=== PATIENT | male | born 1975 | race African-American/Black ===

== ENCOUNTER 2021-08-27 10:08 | Observation (INO) | payer OTHER ==
[2021-08-27 11:21] LABS: #Eosinphils 0.1 10x3/uL (0.0-0.5); #Monocytes 0.4 10x3/uL (0.0-1.1); #Neutrophils 3.3 10x3/uL (1.5-8.4); %Basophils 0.4 % (0.0-2.0); %Eosinophils 2.5 % (0.0-6.0); %Lymphocytes 32.3 % (18.0-47.0); %Monocytes 6.9 % (0.0-10.0); %Neutrophils 57.9 % (40.0-75.0); Hemoglobin 14.3 g/dL (13.5-17.5); Mean Corpuscular HGB CONC 32.2 g/dL (32.0-36.0); Mean Corpuscular Hemoglobin 27.9 pg (27.0-33.0); Mean Corpuscular Volume 86.5 fl (81.2-95.1); Mean Platelet Volume 9.5 fl (7.4-10.4); Platelet Count 270 10x3/uL (150-450); RBC Distribution Width 14.2 % (11.5-14.5); Red Blood Cell (RBC) Count 5.13 10x6/uL (4.32-5.72); White Blood Cell (WBC) Count 5.7 10x3/uL (3.5-10.5)
[2021-08-27 11:25] LABS: PTT 27.9 sec (22.0-33.0)
[2021-08-27 11:42] LABS: ALT (SGPT) 51 U/L (8-55); AST (SGOT) 32 U/L (5-34); Albumin 4.6 g/dL (3.5-5.0); Alkaline Phosphatase 80 U/L (40-110); Anion Gap 15 mmol/L (10-20); BUN (Urea Nitrogen) 9 mg/dL (8.9-20.6); Bilirubin, Total 0.5 mg/dL (0.2-1.2); Calc. Creatinine Clearance 0 mL/min (70-130); Calcium 9.4 mg/dL (7.8-10.44); Carbon Dioxide 26 mmol/L (22-29); Chloride 106 mmol/L (98-107); Globulin 2.9 g/dL (2.4-3.5); Glucose 101 mg/dL (70-105); Potassium 3.8 mmol/L (3.5-5.1); Protein, Total 7.5 g/dL (6.0-8.3); Sodium 143 mmol/L (136-145)
[2021-08-27] MEDS ORDERED: Calcium Carbonate 500 MG ChewTAB PO PRN (12:29)
[2021-08-27] MEDS ORDERED: Senokot S 8.6-50 MG TAB PO PRN (12:29)
[2021-08-27] MEDS ORDERED: Ondansetron ODT 4 MG TAB PO PRN (12:29)
[2021-08-27] MEDS ORDERED: Acetaminophen 325 MG TAB PO PRN (12:29)
[2021-08-27 12:50] LABS: Bilirubin Neg (Negative); Blood, Urine Negative (Negative); Clarity Slightly Cloudy (Clear); Glucose, Urine (Dipstick) Normal (Negative); Ketone, Urine Negative (Negative); Leukocyte Negative (Negative); Nitrite Negative (Negative); Protein, Urine (Dipstick) 15 mg/dl (Neg-Trace); Specific Gravity, Urine 1.015 (1.002-1.036)
[2021-08-27] MEDS ORDERED: Apixaban 5 MG TAB ONE (13:05)
[2021-08-27 15:33] VITALS: BMI 29.4
[2021-08-27] MEDS: tiZANidine HCl 4 MG TAB PO PRN (16:55)
[2021-08-27 17:33] LABS: Bilirubin Neg (Negative); Blood, Urine Negative (Negative); Clarity Clear (Clear); Glucose, Urine (Dipstick) Normal (Negative); Ketone, Urine Negative (Negative); Leukocyte Negative (Negative); Nitrite Negative (Negative); Protein, Urine (Dipstick) Negative (Neg-Trace); Specific Gravity, Urine 1.015 (1.002-1.036)
[2021-08-27 17:39] LABS: Bacteria/HPF None Seen HPF (None Seen); RBC/HPF 0-3 HPF (0-3); Squamous Epithelial 0-3 HPF (0-3); WBC/HPF 0-3 HPF (0-3)
[2021-08-27 17:41] LABS: Amphetamine Not Detected (NotDetected); Barbiturates Screen Not Detected (NotDetected); Benzodiazepine Screen Not Detected (NotDetected); Cocaine Metabolite Screen Not Detected (NotDetected); Methadone Not Detected (NotDetected); Methamphetamine Not Detected (NotDetected); Opiate Screen Not Detected (NotDetected); Oxycodone Screen Not Detected (NotDetected); Phencyclidine (PCP) Not Detected (NotDetected); THC/Cannabinoid Screen Detected (NotDetected); Tricyclic Screen Not Detected (NotDetected)
[2021-08-27] MEDS: OLANZapine 5 MG TAB PO SCH (20:49)
[2021-08-27] MEDS: traZODone HCl 50 MG TAB PO PRN (20:50)
[2021-08-27] MEDS: Atorvastatin Calcium 40 MG TAB PO SCH (20:50)
[2021-08-27] MEDS ORDERED: Apixaban 5 MG TAB PO SCH ×2 (21:00)
[2021-08-27 23:28] LABS: SARS-CoV-2 PCR by NAA Not Detected (NotDetected)
[2021-08-28 04:59] LABS: #Eosinphils 0.3 10x3/uL (0.0-0.5); #Monocytes 0.4 10x3/uL (0.0-1.1); %Basophils 0.5 % (0.0-2.0); %Eosinophils 4.7 % (0.0-6.0); %Lymphocytes 44.4 % (18.0-47.0); %Monocytes 6.9 % (0.0-10.0); Hemoglobin 13.1 g/dL (13.5-17.5); Mean Corpuscular HGB CONC 32.7 g/dL (32.0-36.0); Mean Corpuscular Volume 85.7 fl (81.2-95.1); Mean Platelet Volume 9.5 fl (7.4-10.4); Platelet Count 235 10x3/uL (150-450); RBC Distribution Width 14.4 % (11.5-14.5); Red Blood Cell (RBC) Count 4.68 10x6/uL (4.32-5.72); White Blood Cell (WBC) Count 5.5 10x3/uL (3.5-10.5)
[2021-08-28 05:00] LABS: #Neutrophils 2.4 10x3/uL (1.5-8.4); %Neutrophils 43.5 % (40.0-75.0)
[2021-08-28 05:12] LABS: Anion Gap 14 mmol/L (10-20); BUN (Urea Nitrogen) 11 mg/dL (8.9-20.6); Calc. Creatinine Clearance 150 mL/min (70-130); Calcium 8.9 mg/dL (7.8-10.44); Carbon Dioxide 25 mmol/L (22-29); Chloride 109 mmol/L (98-107); Cholesterol 180 mg/dl (< 200 Desired); Glucose 104 mg/dL (70-105); HDL Cholesterol 30 mg/dL (>60 Neg Risk); LDL Cholesterol, Calculated 120 mg/dL; Magnesium 2.1 mg/dL (1.6-2.6); Potassium 3.6 mmol/L (3.5-5.1); Sodium 144 mmol/L (136-145); Triglycerides 150 mg/dL (Less than 150)
[2021-08-28 05:27] LABS: Thyroid Stimulating Hormone 0.3486 uIU/mL (0.35-4.94)
[2021-08-28] MEDS ORDERED: Aspirin 81 mg Enteric Coated Tablet PO SCH (09:00)
[2021-08-28] MEDS: tiZANidine HCl 4 MG TAB PO PRN (09:25)
[2021-08-28] MEDS: Lisinopril 10 MG TAB PO SCH (09:27)
[2021-08-28] MEDS: busPIRone HCl 5 MG TAB PO SCH ×3 (09:28→20:09)
[2021-08-28] MEDS: Hydrochlorothiazide 25 MG TAB PO SCH (09:31)
[2021-08-28 12:43] LABS: Hemoglobin A1c 5.7 % (4.0-6.0)
[2021-08-28 14:51] LABS: Free T4 (Free Thyroxine) 0.94 ng/dL (0.70-1.48)
[2021-08-28] MEDS: traZODone HCl 50 MG TAB PO PRN (20:09)
[2021-08-28] MEDS: OLANZapine 5 MG TAB PO SCH (20:09)
[2021-08-28] MEDS: Atorvastatin Calcium 40 MG TAB PO SCH (20:09)
[2021-08-28] MEDS: Apixaban 5 MG TAB PO SCH (20:09)
[2021-08-29 04:22] LABS: #Eosinphils 0.2 10x3/uL (0.0-0.5); #Monocytes 0.4 10x3/uL (0.0-1.1); #Neutrophils 2.6 10x3/uL (1.5-8.4); %Basophils 0.5 % (0.0-2.0); %Eosinophils 4.2 % (0.0-6.0); %Lymphocytes 42.8 % (18.0-47.0); %Monocytes 6.8 % (0.0-10.0); %Neutrophils 45.3 % (40.0-75.0); Hemoglobin 13.6 g/dL (13.5-17.5); Mean Corpuscular Hemoglobin 28.2 pg (27.0-33.0); Mean Corpuscular Volume 85.3 fl (81.2-95.1); Mean Platelet Volume 9.3 fl (7.4-10.4); Platelet Count 246 10x3/uL (150-450); RBC Distribution Width 14.4 % (11.5-14.5); Red Blood Cell (RBC) Count 4.83 10x6/uL (4.32-5.72); White Blood Cell (WBC) Count 5.7 10x3/uL (3.5-10.5)
[2021-08-29 04:36] LABS: Anion Gap 13 mmol/L (10-20); BUN (Urea Nitrogen) 9 mg/dL (8.9-20.6); Calc. Creatinine Clearance 144 mL/min (70-130); Carbon Dioxide 28 mmol/L (22-29); Chloride 106 mmol/L (98-107); Glucose 100 mg/dL (70-105); Potassium 3.7 mmol/L (3.5-5.1); Sodium 143 mmol/L (136-145)
[2021-08-29] MEDS: Hydrochlorothiazide 25 MG TAB PO SCH (08:36)
[2021-08-29] MEDS: Apixaban 5 MG TAB PO SCH (08:36)
[2021-08-29] MEDS: Lisinopril 10 MG TAB PO SCH (08:37)
[2021-08-29] MEDS: busPIRone HCl 5 MG TAB PO SCH (08:39)
[2021-08-29 11:31] VITALS: TEMP 97.9
[2021-08-29 12:58] VITALS: BP 137/90
== END 2021-08-29 17:50 | disposition home or self-care (01) ==
LOC: CSHERS 10:08 → CSHTELE 14:12
PROVIDERS: ADMIT Internal Medicine; ATTEND Nurse Practitioner Family
DX: R53.1 Weakness (principal); I65.22 Occlusion and stenosis of left carotid artery; M50.30 Other cervical disc degeneration, unspecified cervical region; Z86.73 Personal history of transient ischemic attack (TIA), and cerebral infarction without residual deficits; Z86.711 Personal history of pulmonary embolism; I10 Essential (primary) hypertension; E78.5 Hyperlipidemia, unspecified; E04.1 Nontoxic single thyroid nodule; F20.9 Schizophrenia, unspecified; F17.210 Nicotine dependence, cigarettes, uncomplicated; Z79.899 Other long term (current) drug therapy; Z79.01 Long term (current) use of anticoagulants; Z20.822 Contact with and (suspected) exposure to COVID-19
CPT/HCPCS: 36415; 70450; 70496; 70498; 70551; 72141; 80048; 80053; 80061; 80306; 81003; 82607; 82746; 83036; 83735; 84439; 84443; 84481; 84484; 85025; 85610; 85730; 93005; 93306; 93880; 94760; G0378; U0003; U0005